=== PATIENT | female | born 1990 | race Caucasian/White ===

== ENCOUNTER 2016-07-30 20:00 | Emergency (ER) | payer BC, SELFPAY ==
[2016-07-30 20:30] VITALS: BP 130/81
--- NOTE | 2016-07-30 21:55 | EDM.PDOC ---
ED HPI Trauma - General Chief Complaint: Lower Extremity Injury/Pain Stated Complaint: POSSIBLE BROKE OR DISLOCATED TOE Time Seen by Provider: 07/30/16 21:45 Source: Reports: Patient History Limitations: Reports: No limitations - History of Present Illness INITIAL COMMENTS - FREE TEXT/NARRATIVE: This 26 yo female patient reports to the ED with pain in her right 5th toe. The patient reports she ran into her large dog prior to coming into the ED and heard a loud "crack" in the toe during the injury. Symptom Onset Date: 07/30/16 Occurred When: just prior to arrival Occurred Where: home Method of Injury: direct blow Severity: moderate Pain/Injury Location: Reports: lower extremity, right Consciousness: Reports: no loss of consciousness Associated Symptoms: Reports: no other symptoms Allergies/ADRs: Allergies No Known Allergies Allergy (Verified 07/30/16 20:24) Home Medications: Ambulatory Orders . 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 Trauma Exam - Physical Exam Exam: See Below Exam Limited By: No limitations General Appearance: Reports: alert, WD/WN, mild distress Head: Reports: atraumatic, normocephalic Eyes: bilateral eye: EOMI, normal inspection, PERRL Ears: Reports: normal external exam, normal canal, hearing grossly normal, normal TMs Nose: Reports: normal inspection, normal mucousa, no blood Throat/Mouth: Reports: Normal inspection, Normal lips, Normal teeth, Normal gums , Normal oropharynx, Normal voice, No airway compromise Neck: Reports: non-tender, full range of motion, normal alignment, normal inspection Respiratory Exam: Reports: no respiratory distress, lungs clear, normal breath sounds Cardiovascular: Reports: normal peripheral pulses, regular rate, rhythm, no edema, no gallop, no JVD, no murmur, no rub GI/Abdominal: Reports: normal bowel sounds, soft, non tender, no organomegaly, no distention, no abnormal bruit, no mass (Female) Exam: Deferred Rectal (Female) Exam: Deferred Extremities: Reports: pain with movement (right 5th toe) 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, no motor/sensory deficits, alert , normal mood/affect, oriented x 3 Skin: Reports: Normal color, Warm/dry - [place] Coma Score Best Eye Response ([place]): (4) open spontaneously Best Verbal Response (Brandy): (5) oriented Best Motor Response (Brandy): (6) obeys commands [place] Total: 15 Course - Vital Signs Last Recorded V/S: Last Vital Signs Temp 36.6 C 07/30/16 20:26 Pulse 92 07/30/16 20:26 Resp 20 07/30/16 20:26 BP 130/81 07/30/16 20:26 Pulse Ox 98 07/30/16 20:26 - Orders/Labs/Meds Orders: Active Orders 24 hr Category Date Time Status DME for Discharge [COMM] Urgent Oth 07/30/16 21:50 Ordered Departure - Departure Time of Disposition: 21:51 Disposition: Home, Self-Care 01 Condition: fair Clinical Impression: Fracture of fifth toe, right, closed Instructions: Toe Fracture, [id number] Forms: ED Department Discharge Care Plan Goals: The patient was advised of the examination and x-ray results during the visit. The patient's 4th and 5th toes were stewart taped while in the ED. The patient was given a support shoe to avoid movement of her toe. The patient was encouraged to rest, ice and elevate the right foot. The patient may take Tylenol or ibuprofen as directed for temporary symptom relief. If the patient has any additional symptoms or concerns, the patient should follow-up with her primary care facility or return to the emergency department. - My Orders Last 24 Hours: My Active Orders 07/30/16 21:50 DME for Discharge [COMM] Urgent - Assessment/Plan Last 24 Hours: My Active Orders 07/30/16 21:50 DME for Discharge [COMM] Urgent
== END 2016-07-30 22:00 | disposition home or self-care (01) ==
LOC: DL.ED 20:00
DX: S92.511A Displaced fracture of proximal phalanx of right lesser toe(s), initial encounter for closed fracture (principal); Z87.440 Personal history of urinary (tract) infections; X58.XXXA Exposure to other specified factors, initial encounter
CPT/HCPCS: 73660-T9; 99283

== ENCOUNTER 2017-11-29 16:25 | Emergency (ER) | payer BC, OTHER, SELFPAY ==
--- NOTE | 2017-11-29 19:21 | EDM.PDOC ---
ED HPI GENERAL MEDICAL PROBLEM - General Chief Complaint: Respiratory Problem Stated Complaint: ALLERGIES [phone] Time Seen by Provider: 11/29/17 18:43 Source of Information: Reports: Patient, Family, RN, RN Notes Reviewed History Limitations: Reports: No Limitations - History of Present Illness INITIAL COMMENTS - FREE TEXT/NARRATIVE: Pt to Er with c/o cough, sore throat, stuffy/runny nose beginning Saturday. States all the family has been having trouble with this. Patient states air conditioning in the home. Has been taking Aleve D, not helping much. Admits to chills, but denies fever, N/V/D. 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 ED EXAM, GENERAL - Physical Exam Exam: See Below Exam Limited By: No Limitations General Appearance: Alert, WD/WN, No Apparent Distress Eye Exam: Bilateral Eye: EOMI, Normal Inspection Ears: Normal External Exam, Normal Canal, Hearing Grossly Normal, Normal TMs ( Left with some fluid, no erythema, no bulging) Nose: Nasal Drainage, Clear Rhinorrhea Throat/Mouth: Normal Lips, Normal Teeth, Normal Gums, Normal Oropharynx, Normal Voice, No Airway Compromise, Other (Mild pharynx eryethema, no exudate) Head: Atraumatic, Normocephalic Neck: Normal Inspection, Supple, Non-Tender, Full Range of Motion, Lymphadenopathy (L), Lymphadenopathy (R) (anterior cervical +1-2) Respiratory/Chest: No Respiratory Distress, Lungs Clear, Normal Breath Sounds, No Accessory Muscle Use, Chest Non-Tender Cardiovascular: Normal Peripheral Pulses, Regular Rate, Rhythm, No Edema, No Gallop, No JVD, No Murmur, No Rub Peripheral Pulses: 2+: Radial (L), Radial (R) GI/Abdominal: Normal Bowel Sounds, Soft, Non-Tender (Female) Exam: Deferred Rectal (Female) Exam: Deferred Back Exam: Normal Inspection, Full Range of Motion Extremities: Normal Inspection, Normal Range of Motion, Non-Tender, Normal Capillary Refill, No Pedal Edema Neurological: Alert, Oriented, CN II-XII Intact, Normal Cognition, Normal Gait, Normal Reflexes, No Motor/Sensory Deficits Psychiatric: Normal Affect, Normal Mood Skin Exam: Warm, Dry, Intact, Normal Color, No Rash Lymphatic: No Adenopathy Course - Vital Signs Last Recorded V/S: Last Vital Signs Temp 98.2 F 11/29/17 16:58 Pulse 68 11/29/17 16:58 Resp 18 11/29/17 16:58 BP 130/68 11/29/17 16:58 Pulse Ox 99 11/29/17 16:58 - Orders/Labs/Meds Orders: Active Orders 24 hr Category Date Time Status CULTURE STREP A CONFIRMATION [RM] Stat Lab 11/29/17 19:04 Results STREP SCRN A RAPID W CULT CONF [RM] Stat Lab 11/29/17 19:04 Results Labs: Rapid Strep: Negative Departure - Departure Time of Disposition: 20:00 Disposition: Home, Self-Care 01 Condition: Fair Clinical Impression: Upper respiratory infection, viral - Discharge Information Instructions: Upper Respiratory Infection, Adult, [id number] Referrals: Meagan Brady MD [Primary Care Provider] - Forms: ED Department Discharge Additional Instructions: May use over the counter Robitussin for cough May use over the counter Zyrtec D for congestion May use Tylenol and/or ibuprofen as directed for pain/fever Follow up with your primary care facility if symptoms persist for 10 days or longer - My Orders Last 24 Hours: My Active Orders 11/29/17 19:04 CULTURE STREP A CONFIRMATION [RM] Stat STREP SCRN A RAPID W CULT CONF [RM] Stat - Assessment/Plan Last 24 Hours: My Active Orders 11/29/17 19:04 CULTURE STREP A CONFIRMATION [RM] Stat STREP SCRN A RAPID W CULT CONF [RM] Stat
[2017-11-29 20:22] VITALS: BP 121/71
== END 2017-11-29 19:50 | disposition home or self-care (01) ==
LOC: DL.ED 16:25
DX: J06.9 Acute upper respiratory infection, unspecified (principal)
CPT/HCPCS: 87081; 87430; 99283

== ENCOUNTER 2019-09-03 22:42 | Emergency (ER) | payer BC ==
[2019-09-03] MEDS ORDERED: Amoxicillin 500 MG Cap PO ONE (23:04)
--- NOTE | 2019-09-03 23:10 | EDM.PDOC ---
ED HPI GENERAL MEDICAL PROBLEM - General Chief Complaint: ENT Problem Stated Complaint: EARS HURT WHEN SWALLOWING Time Seen by Provider: 09/03/19 23:03 Source of Information: Reports: Patient History Limitations: Reports: No Limitations - History of Present Illness INITIAL COMMENTS - FREE TEXT/NARRATIVE: This 29 yo female patient reports to the emergency department due to a 3 day history of a sore throat that has not improved with [id number] medications. The patient has not had a clinic visit her her current complaint. Onset Date: 08/31/19 Duration: Constant, Getting Worse Location: Reports: Neck Quality: Reports: Other Severity: Moderate Improves with: Reports: None Worsens with: Reports: None Context: Reports: Other Associated Symptoms: Reports: Other Treatments SOLE STAINER: Reports: NSAIDS Throat Pain Score (Numeric/FACES): 8 - Related Data Allergies Allergy/AdvReac Type Severity Reaction Status Date / Time No Known Allergies Allergy Verified 07/30/16 20:24 Home Meds: Home Meds Naproxen Sodium/P-Ephed HCl [Aleve-D Sinus and Cold Caplet] 1 tab PO Q12HR PRN 11/29/17 [History] Norgestrel-Ethinyl Estradiol [Elinest-28 Tablet] 1 tab PO DAILY 11/29/17 [ History] Past Medical History - Past Health History Medical/Surgical History: Denies Medical/Surgical History Genitourinary History: Reports: UTI, Recurrent CARDIOLOGY RN History: Reports: Other CARDIOLOGY RN History: Patient states being currently 9 weeks Social & Family History - Family History Family Medical History: Noncontributory - Tobacco Use Smoking Status *Q: Unknown Ever Smoked Second Hand Smoke Exposure: No - Caffeine Use Caffeine Use: Reports: Coffee, Soda - Recreational Drug Use Recreational Drug Use: No ED ROS ENT - Review of Systems Review Of Systems: Comprehensive ROS is negative, except as noted in HPI. ED EXAM, ENT - Physical Exam Exam: See Below Exam Limited By: No Limitations General Appearance: Alert, WD/WN, Moderate Distress Eye Exam: Bilateral Eye: EOMI, Normal Inspection, PERRL Ears: Normal External Exam, Normal Canal, Hearing Grossly Normal, Normal TMs Nose: Normal Inspection, Normal Mucousa, No Blood Mouth/Throat: Normal Gums, Normal Lips, Normal Teeth, Pharyngeal Erythema, Tonsillar Exudates (right sided), Tonsillar Swelling Head: Atraumatic, Normocephalic Neck: Lymphadenopathy (L), Lymphadenopathy (R) Respiratory/Chest: No Respiratory Distress, Lungs Clear, Normal Breath Sounds, No Accessory Muscle Use, Chest Non-Tender Cardiovascular: Normal Peripheral Pulses, Regular Rate, Rhythm, No Edema, No Gallop, No JVD, No Murmur, No Rub (Female) Exam: Normal External Exam, Normal Speculum Exam, Normal Bimanual Exam Rectal (Female) Exam: Deferred Back: Normal Inspection, Full Range of Motion Extremities: Normal Inspection, Normal Range of Motion, Non-Tender, No Pedal Edema, Normal Capillary Refill Psychiatric: Normal Affect, Normal Mood Skin: Warm, Dry, Intact, Normal Color, No Rash Lymphatic: No Adenopathy Course - Vital Signs Last Recorded V/S: Last Vital Signs Temp 36.8 C 09/03/19 22:50 Pulse 125 H 09/03/19 22:50 Resp 16 09/03/19 22:50 BP 134/64 09/03/19 22:50 Pulse Ox 98 09/03/19 22:50 - Orders/Labs/Meds Meds: Medications Discontinued Medications Generic Name Dose Route Start Last Admin Trade Name Yelitza PRN Reason Stop Dose Admin Amoxicillin 500 mg 09/03/19 23:04 Amoxil PO 09/03/19 23:05 ONETIME ONE Departure - Departure Time of Disposition: 23:08 Disposition: Home, Self-Care 01 Condition: Fair Clinical Impression: Strep throat - Discharge Information *PRESCRIPTION DRUG MONITORING PROGRAM REVIEWED*: Not Applicable *COPY OF PRESCRIPTION DRUG MONITORING REPORT IN PATIENT CHIQUITA: Not Applicable Instructions: Strep Throat, [id number]-[id number] Forms: ED Department Discharge Care Plan Goals: The patient was advised of the examination and lab results during the visit. The patient was given a dose of Amoxicillin (500 mg) while in the emergency department. The patient was discharged with a script for Amoxicillin (500 mg) # 20 to take 1 by mouth two times per day for 10 days. The patient was encouraged to increase their oral fluid intake over the next 48 hours. The patient may continue to use ckcf-[id number] medications for temporary symptom relief. If the patient has any additional symptoms or concerns, the patient should either return to the emergency department or follow-up with her primary care facility. Sepsis Event Note - Evaluation Sepsis Screening Result: No Definite Risk - Focused Exam Vital Signs: Vital Signs Temp Pulse Resp BP Pulse Ox 09/03/19 22:50 36.8 C 125 H 16 134/64 98 Date Exam was Performed: 09/03/19 Time Exam was Performed: 23:10
[2019-09-03 23:12] VITALS: BP 134/64; PULSE 125
== END 2019-09-03 23:13 | disposition home or self-care (01) ==
LOC: DL.ED 22:42
DX: J02.0 Streptococcal pharyngitis (principal)
CPT/HCPCS: 87430; 99283; A9270

== ENCOUNTER 2020-11-01 11:29 | Emergency (ER) | payer BC ==
[2020-11-01 11:44] VITALS: BP 147/93; PULSE 98
--- NOTE | 2020-11-01 11:49 | EDM.PDOC ---
ED HPI GENERAL MEDICAL PROBLEM - General Chief Complaint: Respiratory Problem Stated Complaint: COUGH,PAIN FROM COUGHING Time Seen by Provider: 11/01/20 11:40 Source of Information: Reports: Patient, RN, RN Notes Reviewed History Limitations: Reports: No Limitations - History of Present Illness INITIAL COMMENTS - FREE TEXT/NARRATIVE: Pt presents to ER with c/o cough. The patient states she had a similar cough one month ago that went away on it own. Coughing for last couple of days, dry hacky cough without wheezing. Denies fever, chills, sore throat, or shortness of breath. No history or asthma or smoking. Onset: Gradual Duration: Day(s): (3), Constant Location: Reports: Chest Quality: Reports: Ache Severity: Mild Improves with: Reports: None Worsens with: Reports: None Associated Symptoms: Reports: No Other Symptoms - Related Data Allergies Allergy/AdvReac Type Severity Reaction Status Date / Time No Known Allergies Allergy Verified 11/01/20 11:43 Home Meds: Home Meds Naproxen Sodium/P-Ephed HCl [Aleve-D Sinus and Cold Caplet] 1 tab PO Q12HR PRN 11/29/17 [History] norgestrel-ethinyl estradioL [Elinest-28 Tablet] 1 tab PO DAILY 11/29/17 [History] Past Medical History - Past Health History Medical/Surgical History: Denies Medical/Surgical History Genitourinary History: Reports: UTI, Recurrent 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 ED EXAM, GENERAL - Physical Exam Exam: See Below Exam Limited By: No Limitations General Appearance: Alert, WD/WN, No Apparent Distress Eye Exam: Bilateral Eye: Normal Inspection Nose: Normal Inspection, Normal Mucosa, No Blood Throat/Mouth: Normal Inspection, Normal Lips, Normal Teeth, Normal Gums, Normal Oropharynx, Normal Voice, No Airway Compromise Head: Atraumatic, Normocephalic Neck: Normal Inspection, Supple, Non-Tender, Full Range of Motion Respiratory/Chest: No Respiratory Distress, Lungs Clear, Normal Breath Sounds, No Accessory Muscle Use, Chest Non-Tender, Other (Dry cough). No: Crackles, Rales, Rhonchi, Wheezing Cardiovascular: Regular Rate, Rhythm Back Exam: Normal Inspection Extremities: Normal Inspection Neurological: Alert, Oriented, No Motor/Sensory Deficits Psychiatric: Normal Mood Skin Exam: Warm, Dry, Intact, Normal Color, No Rash Course - Vital Signs Last Recorded V/S: Last Vital Signs Temp 97.5 F 11/01/20 11:40 Pulse 98 11/01/20 11:40 Resp 14 11/01/20 11:40 BP 147/93 H 11/01/20 11:40 Pulse Ox 100 11/01/20 11:40 Departure - Departure Time of Disposition: 11:55 Disposition: Home, Self-Care 01 Condition: Good Clinical Impression: Acute bronchitis Qualifiers: Bronchitis organism: unspecified organism Qualified Code(s): J20.9 - Acute bronchitis, unspecified - Discharge Information *PRESCRIPTION DRUG MONITORING PROGRAM REVIEWED*: No *COPY OF PRESCRIPTION DRUG MONITORING REPORT IN PATIENT CHIQUITA: No Instructions: Acute Bronchitis, Adult Forms: ED Department Discharge Additional Instructions: Rx: Tessalon Perles 200mg Rx: Prednisone 20mg Rx: Tylenol No. 3 Follow up in clinic if not improving as expected. Sepsis Event Note (ED) - Focused Exam Vital Signs: Vital Signs Temp Pulse Resp BP Pulse Ox 11/01/20 11:40 97.5 F 98 14 147/93 H 100
== END 2020-11-01 11:57 | disposition home or self-care (01) ==
LOC: DL.ED 11:29
DX: J20.9 Acute bronchitis, unspecified (principal)
CPT/HCPCS: 99283

== ENCOUNTER 2020-11-09 12:59 | Emergency (ER) | payer BC ==
[2020-11-09 13:30] VITALS: BP 100/59; PULSE 98
[2020-11-09] MEDS ORDERED: Sodium Chloride 0.9% 1,000 ML IV ONE (13:59)
--- NOTE | 2020-11-09 14:05 | EDM.PDOC ---
ED HPI GENERAL MEDICAL PROBLEM - General Chief Complaint: General Stated Complaint: SUNBURN FEELING FAINT Time Seen by Provider: 11/09/20 13:50 Source of Information: Reports: Patient History Limitations: Reports: No Limitations - History of Present Illness INITIAL COMMENTS - FREE TEXT/NARRATIVE: This 30 yo female patient reports to the ED with a sun burn and dizziness. The patient reports she was out shore fishing yesterday for 4-5 hours when she got home she noticed that she had a sun burn. The patient reports she treated the burn with Aloe and has been attempting to increase her oral fluid intake. The patient reports the dizziness has not been getting better throughout the day. Onset Date: 11/08/20 Duration: Constant Location: Reports: Generalized Quality: Reports: Other Severity: Moderate Improves with: Reports: None Worsens with: Reports: None Context: Reports: Other Associated Symptoms: Reports: No Other Symptoms Generalized Pain Score (Numeric/FACES): 9 - Related Data Allergies Allergy/AdvReac Type Severity Reaction Status Date / Time No Known Allergies Allergy Verified 11/09/20 13:30 Home Meds: Home Meds Naproxen Sodium/P-Ephed HCl [Aleve-D Sinus and Cold Caplet] 1 tab PO Q12HR PRN 11/29/17 [History] norgestrel-ethinyl estradioL [Elinest-28 Tablet] 1 tab PO DAILY 11/29/17 [History] Past Medical History - Past Health History Medical/Surgical History: Denies Medical/Surgical History HEENT History: Reports: None Cardiovascular History: Reports: None Respiratory History: Reports: None Gastrointestinal History: Reports: None Genitourinary History: Reports: UTI, Recurrent 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 History: Reports: , Other (See Below) Other 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 History: Patient states being currently 9 weeks ,breast implants Musculoskeletal History: Reports: None Neurological History: Reports: None Psychiatric History: Reports: None Endocrine/Metabolic History: Reports: None Hematologic History: Reports: None Immunologic History: Reports: None Oncologic (Cancer) History: Reports: None Dermatologic History: Reports: None - Infectious Disease History Infectious Disease History: Reports: Chicken Pox - Past Surgical History Head Surgeries/Procedures: Reports: None Other Respiratory Surgeries/Procedures: breast implants Social & Family History - Family History Family Medical History: No Pertinent Family History - Tobacco Use Tobacco Use Status *Q: Never Tobacco User Second Hand Smoke Exposure: No - Caffeine Use Caffeine Use: Reports: Coffee, Soda - Recreational Drug Use Recreational Drug Use: No ED ROS GENERAL - Review of Systems Review Of Systems: Comprehensive ROS is negative, except as noted in HPI. ED EXAM, GENERAL - Physical Exam Exam: See Below Exam Limited By: No Limitations General Appearance: Alert, WD/WN, Mild Distress Eye Exam: Bilateral Eye: EOMI, Normal Inspection, PERRL Ears: Normal External Exam, Normal Canal, Hearing Grossly Normal, Normal TMs Nose: Normal Inspection, Normal Mucosa, No Blood Throat/Mouth: Normal Inspection, Normal Lips, Normal Teeth, Normal Gums, Normal Oropharynx, Normal Voice, No Airway Compromise Head: Atraumatic, Normocephalic Neck: Normal Inspection, Supple, Non-Tender, Full Range of Motion Respiratory/Chest: No Respiratory Distress, Lungs Clear, Normal Breath Sounds, No Accessory Muscle Use, Chest Non-Tender Cardiovascular: Normal Peripheral Pulses, Regular Rate, Rhythm, No Edema, No Gallop, No JVD, No Murmur, No Rub GI/Abdominal: Normal Bowel Sounds (Female) Exam: Deferred Rectal (Female) Exam: Deferred Back Exam: Normal Inspection, Full Range of Motion, NT Extremities: Normal Range of Motion, Non-Tender, No Pedal Edema, Normal Capillary Refill Neurological: Alert, Oriented, CN II-XII Intact, Normal Cognition, Normal Gait, Normal Reflexes, No Motor/Sensory Deficits Psychiatric: Normal Affect, Normal Mood Skin Exam: Other (diffuse sun burn (partial thickness) Lymphatic: No Adenopathy Course - Vital Signs Last Recorded V/S: Last Vital Signs Temp 97 F 11/09/20 13:25 Pulse 98 11/09/20 13:25 Resp 16 11/09/20 13:25 BP 100/59 L 11/09/20 13:25 Pulse Ox 100 11/09/20 13:25 - Orders/Labs/Meds Labs: Laboratory Tests 11/09/20 11/09/20 Range/Units 14:08 14:08 WBC 22.3 H (5.0-10.0) 10^3/uL RBC 4.50 (4.2-5.4) 10^6/uL Hgb 13.4 D (12.0-16.0) g/dL Hct 40.0 (37.0-47.0) % MCV 88.9 D (80-100) fL MCH 29.8 (27.0-34.0) pg MCHC 33.5 (33.0-35.0) g/dL Plt Count 251 (150-450) 10^3/uL Neut % (Auto) 87.6 H (42.2-75.2) % Lymph % (Auto) 5.8 L (20.5-50.1) % [place] % (Auto) 6.5 (2-8) % Eos % (Auto) 0.0 L (1.0-3.0) % Baso % (Auto) 0.1 (0.0-1.0) % Add Manual Diff Yes Neutrophils % (Manual) 79 H (42-75) % Lymphocytes % (Manual) 10 L (20-50) % Monocytes % (Manual) 10 H (2-8) % Eosinophils % (Manual) 1 (1-3) % Sodium 133 L (136-145) mmol/L Potassium 3.9 (3.5-5.1) mmol/L Chloride 99 (98-107) mmol/L Carbon Dioxide 23 (21-32) mmol/L Anion Gap 14.9 H (7-13) mEq/L BUN 15 (7-18) mg/dL Creatinine 0.84 (0.55-1.02) mg/dL Est Cr Clr Drug Dosing 102.34 mL/min Estimated GFR (MDRD) > 60 BUN/Creatinine Ratio 17.9 (No establ ref range) Glucose 110 H (70-99) mg/dL Calcium 8.1 L (8.5-10.1) mg/dL Magnesium 2.1 (1.8-2.4) mg/dL Total Bilirubin 1.2 H (0.2-1.0) mg/dL AST 10 L (15-37) U/L ALT 26 (14-59) U/L Alkaline Phosphatase 47 (46-116) U/L Total Protein 6.6 (6.4-8.2) g/dL Albumin 3.0 L (3.4-5.0) g/dL Globulin 3.6 Albumin/Globulin Ratio 0.83 Meds: Medications Discontinued Medications Generic Name Dose Route Start Last Admin Trade Name Freq PRN Reason Stop Dose Admin Sodium Chloride 1,000 mls @ 999 mls/hr 11/09/20 13:59 11/09/20 14:10 Normal Saline IV 11/09/20 14:59 999 mls/hr .BOLUS ONE Administration - Re-Assessments/Exams Free Text/Narrative Re-Assessment/Exam: 11/09/20 14:36 When the patient was asked about any recent illnesses (due to an elevated WBC), the patient reports she did have bronchitis last week and was on Prednisone. 11/09/20 15:25 The patient reports she is feeling much better at this time. Departure - Departure Time of Disposition: 15:25 Disposition: Home, Self-Care 01 Condition: Fair Clinical Impression: Dehydration - Discharge Information *PRESCRIPTION DRUG MONITORING PROGRAM REVIEWED*: Not Applicable *COPY OF PRESCRIPTION DRUG MONITORING REPORT IN PATIENT CHIQUITA: Not Applicable Instructions: Dehydration, Adult, [id number] Forms: ED Department Discharge Care Plan Goals: The patient was advised of the examination and lab results during the visit. The patient was given a liter of IV fluids and was feeling better. The patient was encourage to continue to increase her oral fluid intake and avoid the outdoors. If the patient has any additional symptoms or concerns, the patient should either return to the emergency department or visit her primary care facility. Sepsis Event Note (ED) - Evaluation Sepsis Screening Result: No Definite Risk - Focused Exam Vital Signs: Vital Signs Temp Pulse Resp BP Pulse Ox 11/09/20 13:25 97 F 98 16 100/59 L 100
[2020-11-09 14:32] LABS: ANION GAP 14.9 mEq/L (7-13); CHLORIDE,CL 99 mmol/L (98-107); SODIUM,NA 133 mmol/L (136-145)
== END 2020-11-09 15:38 | disposition home or self-care (01) ==
LOC: DL.ED 12:59
DX: O99.281 Endocrine, nutritional and metabolic diseases complicating pregnancy, first trimester (principal); E86.0 Dehydration; O99.711 Diseases of the skin and subcutaneous tissue complicating pregnancy, first trimester; L55.9 Sunburn, unspecified; Z3A.09 9 weeks gestation of pregnancy
CPT/HCPCS: 36415; 80053; 83735; 85025; 99282; 99284; J7030

== ENCOUNTER 2022-09-15 20:57 | Emergency (ER) | payer BC ==
[2022-09-15 21:20] VITALS: BP 137/86; PULSE 96
== END 2022-09-15 21:44 | disposition home or self-care (01) ==
LOC: DL.ED 20:57
DX: S99.922A Unspecified injury of left foot, initial encounter (principal); W50.0XXA Accidental hit or strike by another person, initial encounter; Y93.68 Activity, volleyball (beach) (court)
CPT/HCPCS: 99282; 99283

== ENCOUNTER 2022-11-18 07:43 | Emergency (ER) | payer BC ==
[2022-11-18 08:17] VITALS: BP 120/76; PULSE 95
== END 2022-11-18 08:05 | disposition home or self-care (01) ==
LOC: DL.ED 07:43
DX: S90.822A Blister (nonthermal), left foot, initial encounter (principal)
CPT/HCPCS: 99282

== ENCOUNTER 2025-02-18 23:27 | Emergency (ER) | payer BC, OTHER ==
[2025-02-19] MEDS: Acetaminophen/HYDROcodone 325-5 MG Tab PO ONE (00:51)
[2025-02-19] MEDS: Amoxicillin/Clavulanate K 875-125 MG Tab PO ONE (00:51)
[2025-02-19 01:13] VITALS: BP 132/79; PULSE 70
== END 2025-02-19 00:56 | disposition home or self-care (01) ==
LOC: DL.ED 23:27
DX: K04.7 Periapical abscess without sinus (principal); Z79.899 Other long term (current) drug therapy
CPT/HCPCS: 99283; A9270-GY